=== PATIENT | male | born 1940 | race Caucasian/White ===

== ENCOUNTER 2017-09-05 09:42 | Emergency (ER) | payer MEDICARE, OTHER ==
[~2017-09-05] VITALS: Ht 190.5 cm; Wt 90.7 kg
[~2017-09-05 09:42] MED LIST: ADULT LOW DOSE81 MG PO; FINASTERIDE5 MG PO; FISH OIL 1,001000 MG PO; FLOMAX0.4 MG; FLOMAX0.4 MG PO; MACUVITE EYE C1 EACH PO; MULTIVITAMINS1 EAC7 PO; ODORLESS GARL1250 MG PO; SIMVASTATIN40 MG PO; VITAMIN C1000 MG PO; VITAMIN D-32000 UNIT PO; VITAMIN E400 UNIT PO
[2017-09-05] MEDS ORDERED: BICALUTAMIDE50 MG PO (10:09)
[2017-09-05] MEDS ORDERED: NORCO 5-325 TA1 EACH PO (11:45)
== END 2017-09-05 12:03 | disposition home or self-care (01) ==
LOC: ED 09:42
PROC: 0RSJXZZ Reposition Right Shoulder Joint, External Approach (ICD-10-PCS; principal; 2017-09-05)
DX: S43.014A Anterior dislocation of right humerus, initial encounter (principal); Z87.891 Personal history of nicotine dependence; Z88.2 Allergy status to sulfonamides; Z88.1 Allergy status to other antibiotic agents; Z79.899 Other long term (current) drug therapy; Z79.82 Long term (current) use of aspirin; W01.0XXA Fall on same level from slipping, tripping and stumbling without subsequent striking against object, initial encounter
CPT/HCPCS: 23650; 73030; 73060; 99152; 99284; J2704; J7030